=== PATIENT | male | born 1965 | race Caucasian/White ===

== ENCOUNTER 2019-07-15 19:35 | Inpatient (IN) ==
[2019-07-15] MEDS ORDERED: ALUMINUM/MAGNESIUM SUSP 30 ML UDC PO STA (19:43)
[2019-07-15] MEDS ORDERED: ASPIRIN CHEW 324 MG PO STA (19:43)
[2019-07-15] MEDS ORDERED: ASPIRIN CHEW 324 MG ONE (19:44)
[2019-07-15] MEDS ORDERED: ALUMINUM/MAGNESIUM SUSP 30 ML UDC ONE (19:45)
[2019-07-15] MEDS ORDERED: SODIUM CHLORIDE 0.9% 500 ML IV SCH (19:45)
[2019-07-15] MEDS ORDERED: NiCARDipine HCL INJ 2.5 MG/ML 10 ML AMP ONE (19:53)
[2019-07-15] MEDS ORDERED: MIDAZOLAM HCL 1 MG/ML 2ML VIAL ONE (19:53)
[2019-07-15] MEDS ORDERED: NITROGLYCERIN/D5W 100MCG/ML 20ML SYR ONE (19:53)
[2019-07-15] MEDS ORDERED: HEPARIN (PORCINE) 1000 UNIT/ML 10 ML (CATH LAB USE ONLY) ONE (19:53)
[2019-07-15] MEDS ORDERED: fentaNYL citrate 100 MCG/2 ML VIAL ONE (19:53)
[2019-07-15 19:54] LABS: Basophils # (auto) 0.04 K/uL (0-0.2); Basophils % (auto) 0.4 %; Eosinophils # (auto) 0.52 K/uL (0-0.5); Eosinophils % (auto) 5.5 %; Hemoglobin 14.2 g/dL (14.0-18.0); Immature Granulocytes # (auto) 0.01 K/uL (0.00-0.02); Immature Granulocytes % (auto) 0.1 %; Lymphocytes # (auto) 2.82 K/uL (1.2-3.4); Mean Corpuscular Hgb Conc 34.6 g/dL (32-36); Mean Corpuscular Volume 89.1 fL (80-100); Mean Platelet Volume 9.8 fL (7.4-10.4); Monocytes # (auto) 0.95 K/uL (0.11-0.59); Monocytes % (auto) 10.1 %; Neutrophils # (auto) 5.06 K/uL (1.4-6.5); Neutrophils % (auto) 53.9 %; Platelet Count 224 K/uL (130-400); RDW Coefficient of Variation 13.5 % (11.5-14.5)
[2019-07-15 20:04] LABS: iSTAT Creatinine 1.2 mg/dl (0.6-1.3); iSTAT Hemoglobin 13.9 g/dl (14.0-18.0); iSTAT Ionized Calcium 1.21 mmol/l (1.12-1.32); iSTAT Potassium 3.5 mEq/L (3.3-5.0)
[2019-07-15] MEDS ORDERED: TICAGRELOR 90 MG TAB PO ONE (20:04)
[2019-07-15 20:09] LABS: Partial Thromboplastin Ratio 0.9; Partial Thromboplastin Time 25.3 Seconds (21.0-31.0); Prothrombin Time 9.8 Seconds (9.0-12.0)
[2019-07-15 20:11] LABS: Alanine Aminotransferase 39 U/L (12-78); Albumin Level 3.8 gm/dl (3.4-5.0); Aspartate Aminotransferase 17 U/L (15-37); BUN Creatinine Ratio 12.2 (10-20); Blood Urea Nitrogen 13 mg/dl (7-18); Calcium 9.1 mg/dl (8.5-10.1); Carbon Dioxide 29 mmol/L (21-32); Chloride 107 mmol/L (98-107); Est GFR (African American) 89.3; Est GFR (Non-African American) 77.1; Glucose 78 mg/dl (70-99); Potassium 3.5 mmol/L (3.5-5.1); Sodium 142 mmol/L (136-145)
--- NOTE | 2019-07-15 20:12 | XRay Report ---
XR chest 1V portable CLINICAL HISTORY: Chest Pain dyspnea COMPARISON STUDY: No previous studies for comparison. FINDINGS: The bones soft tissues and hemidiaphragms are normal. The cardiomediastinal silhouette is n ormal. The lungs are clear. The pulmonary vasculature is normal. IMPRESSION: Negative chest. The above report was generated using voice recognition software. It may contain grammatical, syntax or spelling errors. Electronically signed by: Quinton Lozada M.D. 07/15/2019 8:10 PM
[2019-07-15 20:14] LABS: Albumin Globulin Ratio 1.3 (0.9-2); Alkaline Phosphatase 72 U/L (45-117); Bilirubin,Total 0.2 mg/dl (0.2-1); Total Protein 6.8 gm/dl (6.4-8.2)
--- NOTE | 2019-07-15 20:58 | Emergency Department Note ---
Entered by Arline Jacobsen acting as a scribe for Fredo Tuttle DO History of Present Illness General Chief complaint: Chest Pain Stated complaint: CHEST PAIN Source: patient History of Present Illness Provider complaint: Chest pain Onset (ago): hour(s) 1 Location: chest Radiation: other (arm) Pain Consistency: + constant Maximum Pain Intensity: 9 Quality: + burning Exacerbated By: + other (laying down ) Associated symptoms: + other (Positive: central chest pain); no nausea/vomiting The patient is a 53 year old male with no known past medical history who presents to the ED with complaints of constant burning central chest pain that started an hour ago. The patient reports he was cooking hot dogs when he experienced his chest pete. He notes he has been having chest pain for 2 weeks. The patient additionally states his chest pain radiates down his arm. He reports he smokes 12 cigarettes a day. The patient states laying down makes his pain worse. He denies family history of heart disease. The patient denies nausea. Allergies Allergy/AdvReac Type Severity Reaction Status Date / Time No Known Allergies Allergy Unverified 07/15/19 19:39 Past Med/Surg History Medical History No known problems Family History Other No known problems Social History Feels Safe at Home: Yes Smoking Status: Current every day smoker Review of Systems See HPI for pertinent positives & negatives. and A total of 10 systems reviewed and were otherwise negative Physical Exam Vital Signs Vital Signs - 24 hr 07/15/19 19:36 07/15/19 19:42 07/15/19 19:51 Temperature 37.3 C Temperature Source Oral Sepsis Recent Fever Within 48 Hours No Sepsis Action Taken by Nursing No Action Required Pulse Rate 58 L 73 Pulse Rate [Finger] 57 L Respiratory Rate 20 18 Respiratory Effort / Characteristics Non-Labored Spontaneous Respiratory Depth Normal Blood Pressure [Right Arm] 127/87 Blood Pressure Mean [Right Arm] 100 Pulse Oximetry 98 99 Oxygen Delivery Method Room Air Room Air GENERAL: Patient is awake, alert, and in no acute distress.Patient is resting comfortably and showing no signs of anxiety EYES: The conjunctivae are clear. The pupils are round and reactive. EARS, NOSE, MOUTH AND THROAT: The nose is without any evidence of any deformity. Mucous membranes are moist.Tongue is midline NECK: The neck is nontender and supple. RESPIRATORY: Normal respiratory effort is noted. There is no evidence of wheezing rhonchi or rales to auscultation. CARDIOVASCULAR: Regular rate and rhythm noted. There no murmurs rubs or gallops normal S1 normal S2 GASTROINTESTINAL: The abdomen is soft. Bowel sounds are present in all quadrants. Abdomen is nontender. MUSCULOSKELETAL/EXTREMITIES: There is no evidence of gross deformity. Full range of motion is noted in the hips and shoulders. SKIN: There is no obvious evidence of any rash. There are no petechiae, pallor or cyanosis noted. NEUROLOGIC: Patient is awake alert and oriented x3. Strength is symmetric. Patellar reflexes are 2+ bilaterally. Course 194: The patient was evaluated in room C9. A complete history and physical exam was performed. 2006: I discussed the patient's case with Dr. Rasmussen, [facility] Hospitalist. He evaluated the patient and requested brilinta. The patient was given 180 brilinta and is going to catheterization lab. Consultations Consultation #1: I discussed the patient's case with Dr. Rasmussen Time: 20:06 Administered Medications Discontinued Medications Al Hydrox/Mg Hydrox/Simethicone (Maalox) 30 ml PO NOW STA Stop: 07/15/19 19:44 Last Admin: 07/15/19 19:45 Dose: 30 ml Documented by: [id number] Al Hydrox/Mg Hydrox/Simethicone (Maalox) Confirm Administered Dose 30 ml .ROUTE .STK-MED ONE Stop: 07/15/19 19:46 Last Admin: 07/15/19 19:55 Dose: Not Given Documented by: [id number] Aspirin (Aspirin) 324 mg PO NOW STA Stop: 07/15/19 19:44 Last Admin: 07/15/19 19:45 Dose: 324 mg Documented by: [id number] Aspirin (Aspirin) Confirm Administered Dose 324 mg .ROUTE .STK-MED ONE Stop: 07/15/19 19:45 Last Admin: 07/15/19 19:55 Dose: Not Given Documented by: [id number] Sodium Chloride (Nss) 500 mls @ 999 mls/hr IV .Q31M MARGARITA Stop: 07/15/19 20:15 Last Admin: 07/15/19 19:57 Dose: 999 mls/hr Documented by: [id number] Medical Decision Making Differential Diagnosis Differential diagnosis: Etiologies such as cardiac ischemia, aortic dissection, pulmonary embolism, pneumonia, pneumothorax, musculoskeletal, infections, pericarditis, myocarditis, esophageal rupture, gastrointestinal, as well as others were entertained. Medical Records Attestation: I reviewed the patient's medical records. Home Medications Current Medication List: was personally reviewed by me (No known home medications ) Laboratory Data Attestation: I reviewed the patient's lab results. Result diagrams: 07/15/19 19:46 07/15/19 19:46 Lab Results 07/15/19 07/15/19 07/15/19 Range/Units 19:46 19:46 19:46 WBC 9.40 (4.8-10.8) K/uL RBC 4.60 L (4.7-6.1) M/uL Hgb 14.2 (14.0-18.0) g/dL POC Hgb (14.0-18.0) g/dl Hct 41.0 L (42-52) % POC Hct (42-52) % MCV 89.1 (80-100) fL MCH 30.9 (25-34) pg MCHC 34.6 (32-36) g/dL RDW Std Deviation 44.0 (36.4-46.3) fL RDW Coeff of Edyta 13.5 (11.5-14.5) % Plt Count 224 (130-400) K/uL MPV 9.8 (7.4-10.4) fL Immature Gran % (Auto) 0.1 % Neut % (Auto) 53.9 % Lymph % (Auto) 30.0 % Traverse % (Auto) 10.1 % Eos % (Auto) 5.5 % Baso % (Auto) 0.4 % Immature Gran # (Auto) 0.01 (0.00-0.02) K/uL Neut # (Auto) 5.06 (1.4-6.5) K/uL Lymph # (Auto) 2.82 (1.2-3.4) K/uL Traverse # (Auto) 0.95 H (0.11-0.59) K/uL Eos # (Auto) 0.52 H (0-0.5) K/uL Baso # (Auto) 0.04 (0-0.2) K/uL PT 9.8 (9.0-12.0) Seconds INR 1.0 (0.9-1.1) APTT 25.3 (21.0-31.0) Seconds PTT Ratio 0.9 POC Sodium (135-144) mEq/L Sodium 142 (136-145) mmol/L POC Potassium (3.3-5.0) mEq/L Potassium 3.5 (3.5-5.1) mmol/L POC Chloride (101-112) mEq/L Chloride 107 (98-107) mmol/L Carbon Dioxide 29 (21-32) mmol/L POC Total CO2 (24-31) mEq/l Anion Gap 6.0 (3-11) POC Anion Gap (16-25) mmol/L POC BUN (7-18) mg/dl BUN 13 (7-18) mg/dl Creatinine 1.09 (0.6-1.4) mg/dl POC Creatinine (0.6-1.3) mg/dl Est Cr Clr Drug Dosing Not Reportable Est GFR ( Amer) 89.3 Est GFR (Non-Af Amer) 77.1 BUN/Creatinine Ratio 12.2 (10-20) Glucose 78 (70-99) mg/dl POC Glucose (other) (70-99) mg/dl Calcium 9.1 (8.5-10.1) mg/dl POC Ioniz Calcium Edyta (1.12-1.32) mmol/l Total Bilirubin 0.2 (0.2-1) mg/dl AST 17 (15-37) U/L ALT 39 (12-78) U/L Alkaline Phosphatase 72 (45-117) U/L POC Troponin I (0-0.045) ng/ml Total Protein 6.8 (6.4-8.2) gm/dl Albumin 3.8 (3.4-5.0) gm/dl Globulin 3.0 (2.5-4.0) gm/dl Albumin/Globulin Ratio 1.3 (0.9-2) Lipase 58 L (73-393) U/L 07/15/19 07/15/19 Range/Units 19:51 19:51 WBC (4.8-10.8) K/uL RBC (4.7-6.1) M/uL Hgb (14.0-18.0) g/dL POC Hgb 13.9 L (14.0-18.0) g/dl Hct (42-52) % POC Hct 41 L (42-52) % MCV (80-100) fL MCH (25-34) pg MCHC (32-36) g/dL RDW Std Deviation (36.4-46.3) fL RDW Coeff of Edyta (11.5-14.5) % Plt Count (130-400) K/uL MPV (7.4-10.4) fL Immature Gran % (Auto) % Neut % (Auto) % Lymph % (Auto) % Traverse % (Auto) % Eos % (Auto) % Baso % (Auto) % Immature Gran # (Auto) (0.00-0.02) K/uL Neut # (Auto) (1.4-6.5) K/uL Lymph # (Auto) (1.2-3.4) K/uL Traverse # (Auto) (0.11-0.59) K/uL Eos # (Auto) (0-0.5) K/uL Baso # (Auto) (0-0.2) K/uL PT (9.0-12.0) Seconds INR (0.9-1.1) APTT (21.0-31.0) Seconds PTT Ratio POC Sodium 141 (135-144) mEq/L Sodium (136-145) mmol/L POC Potassium 3.5 (3.3-5.0) mEq/L Potassium (3.5-5.1) mmol/L POC Chloride 102 (101-112) mEq/L Chloride (98-107) mmol/L Carbon Dioxide (21-32) mmol/L POC Total CO2 25 (24-31) mEq/l Anion Gap (3-11) POC Anion Gap 19.0 (16-25) mmol/L POC BUN 12 (7-18) mg/dl BUN (7-18) mg/dl Creatinine (0.6-1.4) mg/dl POC Creatinine 1.2 (0.6-1.3) mg/dl Est Cr Clr Drug Dosing Est GFR ( Amer) Est GFR (Non-Af Amer) BUN/Creatinine Ratio (10-20) Glucose (70-99) mg/dl POC Glucose (other) 78 (70-99) mg/dl Calcium (8.5-10.1) mg/dl POC Ioniz Calcium Edyta 1.21 (1.12-1.32) mmol/l Total Bilirubin (0.2-1) mg/dl AST (15-37) U/L ALT (12-78) U/L Alkaline Phosphatase (45-117) U/L POC Troponin I 0.08 H (0-0.045) ng/ml Total Protein (6.4-8.2) gm/dl Albumin (3.4-5.0) gm/dl Globulin (2.5-4.0) gm/dl Albumin/Globulin Ratio (0.9-2) Lipase (73-393) U/L Imaging Data Radiologist's Impression: Radiology results as stated below per my review and the radiologist's interpretation: XR chest 1V portable CLINICAL HISTORY: Chest Pain dyspnea COMPARISON STUDY: No previous studies for comparison. FINDINGS: The bones soft tissues and hemidiaphragms are normal. The car diomediastinal silhouette is normal. The lungs are clear. The pulmonary vasculature is normal. IMPRESSION: Negative chest. The above report was generated using voice recognition software. It may contain grammatical, syntax or spelling errors. Electronically signed by: Quinton Lozada M.D. 07/15/2019 8:10 PM ECG Data Attestation: I personally reviewed and interpreted this ECG as follows: Indication: chest pain Rate (beats per minute): 51 Rhythm: sinus bradycardia Findings: + other (Inferior ST segment elevation noted with anterior reciprocal changed noted. Consistent with inferior posterior wall LA); no ectopy Comparison ECG Date: no prior available Blood Pressure Blood Pressure Findings: Normal blood pressure Blood Pressure Disposition: did not require urgent referral MDM Narrative The patient is a 53-year-old male who presented to the emergency department for an evaluation of chest pain. The patient describes chest burning with radiation to the arms. The onset was acute and was associated with diaphoresis. The patient has had similar episodes in the past for the last few weeks but he did not seek medical attention at that time. The patient is initial EKG appeared to be consistent with an acute LA. Heart alert was called. The patient was treated with aspirin in the emergency department. He was reevaluated multiple times. After evaluation by the upper inspector he was also given Brilinta. The patient was felt to be a good candidate for cardiac catheterization and possible interventional therapy. The patient was agreeable to this. I discussed what this would entail and he was evaluated by the upper inspector and further questions were answered. I discussed the patient's laboratory and radiographic studies with his family. He was sent to the cardiac [facility] Operations [employer]ist. He was stable on transfer to the Learning Operations [employer]ist. Impression & Plan Acute LA, inferior wall, Chest pain, Acute LA, true posterior wall Discharge Plan Visit Data *Final* Discharge Date/Time: 07/15/19 20:18 Chief Complaint: Chest Pain Stated Complaint: CHEST PAIN ED Provider: Fredo Tuttle Discharge Problem: Acute LA, inferior wall, Chest pain, Acute LA, true posterior wall Patient Disposition: Admitted As Inpatient Discharge Instructions Interventions: ED Discharge Assessment Last Done: 07/15/19 20:18 Forms Stand Alone Forms: Call Back Authorization, [facility] Referrals Referrals: Silvina Oneill MD [Primary Care Provider] - Discharge Problem: Chest pain Qualifiers: Chest pain type: unspecified Qualified Code(s): R07.9 - Chest pain, unspecified The scribe's documentation has been prepared under my direction and personally reviewed by me in its entirety. I confirm that the note above accurately reflects all work, treatment, procedures, and medical decision making performed by me.
--- NOTE | 2019-07-15 21:02 | Pre Anesthesia Assessment ---
Date of Service July 15, 2019 Pre Sedation Assessment Vital Signs Temp Pulse Pulse Resp BP Pulse Ox 07/15/19 19:51 73 99 07/15/19 19:42 57 L 18 127/87 07/15/19 19:36 37.3 C 58 L 20 98 Cardiovascular RRR, no murmur, no edema Respiratory normal respiratory effort, lungs clear to auscultation Pre-Sedation Airway Assessment Smoking Status: Current every day smoker Hx Sleep Apnea: No Hx Difficult Intubation: No Thyromental Distance: > or= 3.5 Finger Breadths Oral Cavity: + WNL Mallampati Class: III Procedure Planning Contraindications for Sedation: none Current Medications Reviewed: Yes Notes The planned sedation has been discussed with the patient. Informed Consent was obtained. I have identified the patient, determined the appropriateness of sedation and have assessed the patient immediately prior to the procedure. All medicine(s) and interventions are by my order.
[2019-07-15] MEDS ORDERED: ICU PROTOCOL FOR HYPERGLYCEMIA PRN (21:06)
[2019-07-15] MEDS ORDERED: ONDANSETRON INJ 2 MG/ML 2 ML VIAL IV PRN (21:06)
[2019-07-15] MEDS ORDERED: ACETAMINOPHEN 325 MG TAB PO PRN (21:06)
--- NOTE | 2019-07-15 21:17 | Cardiology Consultation ---
Date of Consultation July 15, 2019 Assessment & Plan (1) Acute IA, inferior wall: Presentation consistent with inferior STEMI and recommend proceeding with emergent cardiac catheterization and likely primary PCI. No apparent contraindications to procedure. Discussed risks, benefits, alternatives of procedure with patient and they are willing to proceed. Given ticagrelor 180 mg in the ED. Further recommendations pending findings of coronary angiography. History of Present Illness Reason for Consultation: STEMI Requesting Physician: Parag History of Present Illness 53-year-old man here with acute chest pain and ECG concerning for acute IA. Patient seen emergently in the ED after heart alert activated upon arrival. No prior cardiac history. Cardiac risk factors include ongoing tobacco use. No other significant medical history. Chest pain began approximately 1 hour prior to arrival while at rest. Describes chest burning radiating to bilateral arms associated with nausea and diaphoresis. Reports brief episodes of pain similar to this over the last 2 weeks that resolved on their own. Chest pain at its worst 9/10, at time of arrival 6/10. Hemodynamically stable. EKG showed subtle inferior ST elevations, Allergies Allergy/AdvReac Type Severity Reaction Status Date / Time No Known Allergies Allergy Unverified 07/15/19 19:39 Home Medications Home Medications Medication Instructions Recorded Confirmed Type atorvastatin [Lipitor] 20 mg PO DAILY 07/15/19 07/15/19 History hydrocodone-acetaminophen 1 tab PO DAILY PRN 07/15/19 07/15/19 History pantoprazole 20 mg PO DAILY 07/15/19 07/15/19 History Patient History Medical History Tobacco use (Chronic) Chronic back pain (Chronic) HLD (hyperlipidemia) (Chronic) GERD (gastroesophageal reflux disease) (Chronic) Surgical History History of cardiac catheterization (Chronic) 07/15/19 - STEMI, S/P PCI, [facility], [facility], By Dr Rasmussen History of vasectomy (Chronic) Family History Grandfather Stroke Brother Hypertension Social History Preferred Language: French Communication Ability: Effective Appeals Nurse Required: No Beliefs That Will Affect Care: None Current Living Situation: Family Other Information That Helps Us Care for You: No Feels Safe at Home: Yes Safety Concerns: Feels Safe At This Time Smoking Status: Current every day smoker Tobacco Type: cigarettes ; Cigarettes Per Day: 12 cigarettes per day x 30 years ; Do You Dip or Chew Tobacco: Yes ; Second Hand Exposure: No ; Tobacco Cessation Education Requested by Patient: No Hx Alcohol Use: Yes Alcohol Intake Frequency: Holidays/Special Occasions Hx Substance Use: Yes substance use type: marijuana Review of Systems Review of Systems: Not obtained in the setting of emergent situation Physical Exam Physical Exam: General: Comfortable, no acute distress HEENT: Sclerae anicteric, mucous membranes moist Lungs: Clear to auscultation bilaterally, no rhonchi or wheezes Cardiac: Regular rate and rhythm, no murmurs. No JVD. Abdomen: Soft, nontender, nondistended, positive bowel sounds. Extremities: Warm, well perfused, no edema. 2+ radial pulses Skin: No rashes or lesions. Neuro: Nonfocal Psych: Alert orient x3, normal affect and mood Results & Data Vital Signs (Past 12 Hours) Vital Signs Temp Pulse Pulse Resp BP Pulse Ox 07/15/19 19:51 73 99 07/15/19 19:42 57 L 18 127/87 07/15/19 19:36 37.3 C 58 L 20 98 PG Care Time/CCT Total # of Minutes Spent Total Time Spent with Patient: Total time spent is greater than 50% in cooler tender rdination of care (as documented) at patient's floor/unit and/or counseling patient:
--- NOTE | 2019-07-15 21:24 | Cardiac Catheterization ---
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 Cardiac Status Clinical evaluation leading to the procedure CAD Presenation: STEMI Anginal Classification: CCS IV Heart Failure: No Cardiogenic Shock within 24 Hours: No Cardiac Arrest within 24 Hours: No Imaging Studies Past 6 Months: No Stress Studies Past 6 Months: No Diagnostic Physicians Name: Santana Rasmussen MD Status: Emergency Closure Device Percutaneous Entry Location: Radial Closure Device: Radial Band Recommendations: PCI without planned CABG PCI Indication: Immediate PCI for STEMI Lesion Segment Name: Proximal OM 1 Culprit Artery: Yes Stenosis Prior to Rx (%): 100 Chronic Total Occlusion: No IVUS: No FFR: No Pre-Procedure TEJAS Flow: 0 Previously Treated Lesion: No Lesion Complexity: Non-High/Non-C Lesion Length (mm): 12 Thrombus Present: Yes Bifurcation Lesion: No Guidewire Across Lesion: Stenosis Post-Procedure (%): 0 Post-Procedure TEJAS Flow: 3 Devices(s) Deployed: Yes Yes Intraprocedure Events Significant Disection: No Perforation: No Cardiac Cath Procedure Full Procedure Date July 15, 2019 Pre-Procedure Diagnosis Pre-Procedure Diagnosis: STEMI AUC Score AUC Score: 9 Post-Procedure Diagnosis Post-Procedure Diagnosis: Severe CAD, Successful PCI and Normal Intracardiac Pressures Procedure(s) Performed Procedure(s) Performed: Coronary Angiography, Left Heart Cath, Drug Eluting Stent and Ultrasound Guided Vascular Access Rn Occupational Health Santana Rasmussen MD Lpn Medical Assistant(s) Dannielle Estimated Blood Loss Estimated Blood Loss: 10 Medication(s) Medication(s): Fentanyl, Heparin, Lidocaine 1%, Nicardipine, Nitroglycerin and Versed Medication(s): Ticagrelor Summary of Findings Indication: STEMI/Heart Alert Access: 6 Fr right radial artery under ultrasound guidance Catheters: Ikari 3.5 guide Findings: LM -moderate caliber vessel, luminal irregularities LAD -moderate caliber vessel, distal luminal irregularities, extends around apex. Gives off large second diagonal without significant disease Circumflex -moderate caliber vessel, large OM1 100% acutely occluded. RCA -large caliber vessel, dominant, ectatic in the earlymid segment, luminal irregularities in PLB's. LVEDP -5 -- PCI -- Antithrombotic therapy: Heparin, ticagrelor Procedure: Left main cannulated with Ikari 3.5 guide BMW wire passed across lesion into distal vessel Proximal OM 1 lesion predilated with 2.5 compliant balloon Dilated lesion stented with 2.5 x 18 mm Xience drug-eluting stent Stent post-dilated with 2.75 noncompliant balloon IC vasodilators administered for spasm Post procedure TEJAS 3 flow, stent well expanded with minimal residual stenosis and no apparent cardiac complications. Arterial Closure: TR band Summary: 1. Acute 100% proximal OM1 occlusion 2. Minimal non-culprit coronary artery disease 3. Normal intracardiac filling pressure 4. Successful PCI of proximal OM1 with single drug-eluting stent (2.5 x 18 Xience Valarie; postdilated with 2.75 NC). Recommendations: Admit to ICU for continued monitoring Loaded with ticagrelor 180 mg Continue dual-antiplatelet therapy for at least 1 year. Trend troponins until peak, Check Echo Uptitrate beta-zane/BREONNA as BP allows High-dose statin Consult cardiac Rehab Hemodynamics Rest Ao:: 143/78/104 Final Ao: 102/59/78 LV: 100/5 Recommendations Recommendations: PCI without planned CABG Specimens Specimens: None Radiation Exposure (mGy) 2372 Contrast (mls) 140 Fluids (cc crystalloids) Fluids (cc crystalloids): 70 Drains Drains: 79 Anesthesia Moderate Procedural Complication(s) None Disposition ICU
--- NOTE | 2019-07-15 21:24 | Post Anesthesia Assessment ---
Date of Service July 15, 2019 Post Sedation Assessment Vital Signs Temp Pulse Pulse Resp BP Pulse Ox 07/15/19 19:51 73 99 07/15/19 19:42 57 L 18 127/87 07/15/19 19:36 37.3 C 58 L 20 98 Recovery Score Activity: Moves 4 extremities Respiration: Deep Breath/Cough Circulation: +/-20% PreAnes Value Consciousness: Fully Awake Oxygen Saturation: O2 needed for >90% Discharge Sedation Level of Care: Fast Track Phase II Post Sedation Plan On clinical assessment, the patient appears to have tolerated the sedation without complications. Patient is recovering as anticipated. Patient will continue to be monitored by nursing and may be discharged when sedation discharge criteria are met per below protocol. Upon Completions of procedure and additional 15 minutes continue every 5 minute vital signs and the P.A.R. score; then discharge to a Phase I or Fast Track to Phase II per the following guidelines: * Discharge Patient to appropriate Phase II area if PAR is 8 or greater or return to pre- procedure baseline. The post - procedure orders will be as directed. * If PAR score is less than 8 or not return to pre-procedure baseline then patient will follow Phase I monitoring till PAR is reached for Phase II. The Phase I may be done in procedure room or may call to secure a Phase I area. * If naloxone or flumazenil are used for reversal, hold in Phase I for continued monitoring from when last reversal dose was given for a minimum of 60 minutes or longer pending the nurse and/or physician discretion of patient condition before discharge to Phase II. Please call the Sedation Physician to re-evaluate and complete post-note for discharge to Phase II area. Do NOT discharge from procedure sedation or Phase 1 until post- sedation evaluation note is complete by procedure /sedation MD Sedation Discharge Instructions to be given to the patient at discharge to home.
--- NOTE | 2019-07-15 22:13 | History & Physical Report ---
Date of Service July 15, 2019 Assessment & Plan (1) STEMI (ST elevation myocardial infarction): Pt presented with central CP x 1 hour with radiation arm, nausea, diaphoresis EKG: ST elevation in inferior leads, sinus bradycardia rate 51. -Was loaded with Brilinta, given ASA 324mg in ER -S/P PCI with SHELLEY to proximal OM1 today by Dr Rasmussen. -Trend troponin -Echo -Lipid panel and A1c in am -Cardiology on board: Atorvastatin 80mg daily, Lisinopril 5mg, Brilinta BID, Metoprolol 25mg BID Recommends dual antiplatelet therapy for at least 1 year. Recommends cardiac rehab (2) HLD (hyperlipidemia): -atorvastatin increased to 80mg daily (3) GERD (gastroesophageal reflux disease): -Continue PPI (4) Chronic back pain: -On Hydrocodone (5) Tobacco use: -Smoking cessation encouraged Full Code as per discussion with pt Follows with Dr Silvina Oneill in [place] for routine care Pt was seen and care coordinated with Dr Bailey. See addendum History of Present Illness Chief Complaint: CP Primary Care Provider: Silvina Oneill MD Pt is 53 y/o M with PMH tobacco use, HLD, GERD, chronic back pain presented to ER with c/o central CP x 1 hour with radiation to arms, nausea, and diaphoresis. He reported intermittent CP over past 2 weeks that would self resolve. In ER EKG sinus bradycardia with ST elevation in inferior leads with stable vital sign s. Initial POC troponin mildly elevated at 0.08. STEMI and S/P PCI with SHELLEY to proximal OM1 today by Dr Rasmussen. Post cath pt reports doing well. He denies any CP, SOB, dizziness, N/V. Denies fever/chills, diaphoresis, PETER, syncope, vision changes, neck pain, orthopnea, palpitations, cough, sore throat, choking, otalgia, rhinorrhea, abdominal pain, paresthesias, extremity edema, rashes, urinary symptoms. Allergies Allergy/AdvReac Type Severity Reaction Status Date / Time No Known Allergies Allergy Unverified 07/15/19 19:39 Home Medications Home Medications Medication Instructions Recorded Confirmed Type atorvastatin [Lipitor] 20 mg PO DAILY 07/15/19 07/15/19 History hydrocodone-acetaminophen 1 tab PO DAILY PRN 08/16/19 08/16/19 History pantoprazole 20 mg PO DAILY 07/15/19 07/15/19 History Past Med/Surg History Medical History Tobacco use (Chronic) Chronic back pain (Chronic) HLD (hyperlipidemia) (Chronic) GERD (gastroesophageal reflux disease) (Chronic) Surgical History History of cardiac catheterization (Chronic) 07/15/19 - STEMI, S/P PCI, SHELLEY proximal OM1, [facility], By Dr Rasmussen History of vasectomy (Chronic) Family History Grandfather Stroke Brother Hypertension Social History Preferred Language: Upper Sorbian Communication Ability: Effective Color Print Inspector Required: No Beliefs That Will Affect Care: None Current Living Situation: Family Other Information That Helps Us Care for You: No Feels Safe at Home: Yes Safety Concerns: Feels Safe At This Time Smoking Status: Current every day smoker Tobacco Type: cigarettes ; Cigarettes Per Day: 12 cigarettes per day x 30 years ; Do You Dip or Chew Tobacco: Yes ; Second Hand Exposure: No ; Tobacco Cessation Education Requested by Patient: No Hx Alcohol Use: Yes Alcohol Intake Frequency: Holidays/Special Occasions Hx Substance Use: Yes substance use type: marijuana Review of Systems Review of Systems: All systems reviewed & are unremarkable except as noted in HPI & below Physical Exam Physical Exam: General: no distress, WDWN Head: normocephalic, atraumatic Eyes: PERRL, EOM's intact, conjunctiva non-injected, anicteric ENT: normal inspection external ears, nose, mucous membranes moist Neck: supple, trachea midline Lungs: clear, no respiratory distress, no wheezing/rhonchi/rales CV: RRR, no murmur, no JVD, no pretibial edema Abd: normal BS, soft, non-tender Ext: no cyanosis, no calf tenderness; Right wrist with compression band in place without significant bleeding, ROM fingers intact, sensation to light touch intact Neuro: A&O x 3, no focal deficits noted, normal affect Skin: warm, dry Results & Data Vital Signs (Past 12 Hours) Vital Signs Temp Pulse Pulse Resp BP Pulse Ox 07/15/19 19:51 73 99 07/15/19 19:42 57 L 18 127/87 07/15/19 19:36 37.3 C 58 L 20 98 Laboratory Results Short CBC 07/15/19 Range/Units 19:46 WBC 9.40 (4.8-10.8) K/uL Hgb 14.2 (14.0-18.0) g/dL Hct 41.0 L (42-52) % Plt Count 224 (130-400) K/uL BMP 07/15/19 19:46 Sodium 142 Potassium 3.5 Chloride 107 Carbon Dioxide 29 BUN 13 Creatinine 1.09 Glucose 78 Calcium 9.1 Liver Function 07/15/19 Range/Units 19:46 Total Bilirubin 0.2 (0.2-1) mg/dl AST 17 (15-37) U/L ALT 39 (12-78) U/L Alkaline Phosphatase 72 (45-117) U/L Albumin 3.8 (3.4-5.0) gm/dl Diagnostic Findings CXR: IMPRESSION: Negative chest. ECG Rate (beats per minute): 51 Rhythm: sinus bradycardia Findings: + ST elevation (Inferior) Code Status & VTE Plan VTE Prophylaxis Plan VTE Prophylaxis will be ordered: Yes Supervising Physician Co-Signing Physician Notes IM ATTENDING : Patient seen and examined. History obtained from patient and records. Preceding documentation by Ms. Susanna Guzman PA-C reviewed. FINAL ASSESSMENT AND PLAN as follows : STEMI sp successful PCI Hyperlipidemia as per records Ongoing tobacco abuse ICU monitoring post PCI Management of cardiac issues as per spray cementer. Nicotine patch PRN DVT prophylaxis. Lovenox subcu Full code
[2019-07-15] MEDS ORDERED: SODIUM CHLORIDE 0.65% NA SOLN 45 ML (OCEAN) PRN (22:26)
[2019-07-15] MEDS ORDERED: PROMETHAZINE HCL 12.5 MG in SODIUM CHLORIDE 0.9% 50 ML IV PRN (22:29)
[2019-07-15] MEDS ORDERED: MoRPHine SULFATE 4 MG/ML 1 ML CARP\\VIAL IV PRN (22:29)
[2019-07-15] MEDS ORDERED: TRAMADOL HCL 50 MG TABLET PO PRN (22:29)
[2019-07-15] MEDS ORDERED: METOPROLOL TARTRATE 25 MG TAB PO ONE (23:00)
[2019-07-15] MEDS: SODIUM CHLORIDE 0.9% 1000ML 1,000 ML IV SCH (23:37)
[2019-07-16 03:11] LABS: Basophils # (auto) 0.03 K/uL (0-0.2); Basophils % (auto) 0.3 %; Eosinophils # (auto) 0.16 K/uL (0-0.5); Eosinophils % (auto) 1.5 %; Hemoglobin 13.8 g/dL (14.0-18.0); Immature Granulocytes # (auto) 0.01 K/uL (0.00-0.02); Immature Granulocytes % (auto) 0.1 %; Lymphocytes # (auto) 2.13 K/uL (1.2-3.4); Mean Corpuscular Hgb Conc 36.3 g/dL (32-36); Mean Platelet Volume 9.5 fL (7.4-10.4); Monocytes # (auto) 0.97 K/uL (0.11-0.59); Monocytes % (auto) 9.1 %; Neutrophils # (auto) 7.35 K/uL (1.4-6.5); Platelet Count 231 K/uL (130-400); RDW Coefficient of Variation 13.3 % (11.5-14.5); RDW Standard Deviation 42.9 fL (36.4-46.3); Red Blood Count 4.37 M/uL (4.7-6.1); White Blood Count 10.65 K/uL (4.8-10.8)
[2019-07-16 03:27] LABS: BUN Creatinine Ratio 14.3 (10-20); Calcium 8.3 mg/dl (8.5-10.1)
[2019-07-16 03:55] LABS: Troponin I 46.1 ng/ml (0-0.045)
[2019-07-16 05:58] LABS: Estimated Average Glucose 126 mg/dl
[2019-07-16] MEDS: METOPROLOL TARTRATE 25 MG TAB PO SCH ×2 (07:50→20:42)
[2019-07-16] MEDS: ASPIRIN 81 MG ECTAB PO SCH (07:51)
[2019-07-16] MEDS: ATORVASTATIN 40 MG TAB PO SCH (07:51)
[2019-07-16] MEDS: LISINOPRIL 5 MG TAB PO SCH (07:51)
[2019-07-16] MEDS: ENOXAPARIN INJ 40 MG/0.4 ML SYR SQ SCH (07:51)
[2019-07-16] MEDS: TICAGRELOR 90 MG TAB PO SCH ×2 (07:51→20:42)
[2019-07-16] MEDS: SODIUM CHLORIDE 0.9% 1000ML 1,000 ML IV SCH (07:56)
[2019-07-16 08:00] LABS: Lyme Ab IgG w/WB Rflx Negative (Negative); Lyme Ab IgM w/WB Rflx Negative (Negative)
--- NOTE | 2019-07-16 08:06 | Cardiology Progress Note ---
Date of Service July 16, 2019 Assessment & Plan (1) STEMI (ST elevation myocardial infarction): 2. Preserved LV function, inferolateral hypokinesis 3. Dyslipidemia 4. Tobacco use Patient stable from a cardiac standpoint. No recurrent chest pain. Hemodynamically stable. Sinus bradycardia, no ventricular ectopy. No signs of heart failure on exam. No apparent access like applications. Continue DAPT with aspirin, ticagrelor Okay to give low-dose metoprolol 12.5 twice daily Start lisinopril Continue high intensity statin Discussed smoking cessation Okay for transfer to telemetry today. Up walking halls this afternoon. If stable likely home tomorrow. Subjective Feeling well this morning. No chest pain. No shortness of breath. Tele reviewed -- sinus bradycardia, no ectopy Echo reviewed -- EF~55%, inferolateral hypokinesis Review of Systems Review of Systems: All systems reviewed & are unremarkable except as noted in HPI & below Physical Exam Physical Exam: General: Comfortable, no acute distress HEENT: Sclerae anicteric, mucous membranes moist Lungs: Clear to auscultation bilaterally, no rhonchi or wheezes Cardiac: Regular rate and rhythm, no murmurs. No JVD. Abdomen: Soft, nontender, nondistended, positive bowel sounds. Extremities: Warm, well perfused, no edema. Right radial artery access site with no ecchymosis, hematoma. Distal pulse and sensation intact. Skin: No rashes or lesions. Neuro: Nonfocal Psych: Alert orient x3, normal affect and mood Results & Data Vital Signs (Past 12 Hours) Vital Signs Temp Pulse Pulse Resp BP BP Pulse Ox 07/16/19 07:00 36.7 C 43 L 12 105/78 96 07/16/19 04:30 48 L 14 103/56 L 97 07/16/19 04:00 36.7 C 45 L 14 106/54 L 97 07/16/19 03:30 48 L 12 117/80 93 07/16/19 03:00 52 L 14 123/71 96 07/16/19 02:30 51 L 11 L 127/68 95 07/16/19 02:00 55 L 15 111/78 94 07/16/19 01:30 53 L 19 114/73 95 07/16/19 01:00 54 L 15 116/71 94 07/16/19 00:30 53 L 17 120/69 92 07/16/19 00:00 36.6 C 66 16 119/73 94 07/15/19 23:30 59 L 15 121/76 92 07/15/19 23:00 57 L 13 122/75 93 07/15/19 22:31 65 13 147/56 H 95 07/15/19 22:15 68 13 135/83 94 07/15/19 22:14 36.8 C 65 16 160/95 H 94 07/15/19 22:00 65 14 145/77 H 96 07/15/19 21:45 79 15 145/88 H 94 07/15/19 21:32 68 22 163/95 H 93 07/15/19 21:18 36.8 C 68 20 130/82 93 PG Care Time/CCT Total # of Minutes Spent Total Time Spent with Patient: Total time spent is greater than 50% in coordination of care (as documented) at patient's floor/unit and/or counseling patient:
[2019-07-16] MEDS ORDERED: METOPROLOL TARTRATE 25 MG TAB PO SCH (09:00)
--- NOTE | 2019-07-16 11:44 | Critical Care Consultation ---
Date of Consultation July 16, 2019 Assessment & Plan (1) STEMI (ST elevation myocardial infarction): PLAN: Resp: Tobacco abuse -Smoking cessation education CV: Acute ST elevation CO -Reviewed cardiology recommendations DVT prophylaxis: Patient is ambulatory Endocrine: ICU hyperglycemia protocol Vascular access: Peripheral IVs Code Status: Full Transfer orders to PCU placed. Present on Admission?: Yes History of Present Illness Attending Physician: Yamilka Shey Sr Patient presented with central chest pain of 1 hours duration to the emergency department. Found to have an ST elevation CO and went emergently to the cardiac Communications Planner. In the cardiac Communications [facility]anner he received one drug-eluting stent to the proximal OM. He was loaded with ticagrelor, was started on dual antiplatelet therapy, high-dose statin. Ambulated around ICU without issue. Stable for downgrade per cardiology's note. Allergies Allergy/AdvReac Type Severity Reaction Status Date / Time No Known Allergies Allergy Unverified 07/15/19 19:39 Home Medications Home Medications Medication Instructions Recorded Confirmed Type atorvastatin [Lipitor] 20 mg PO DAILY 07/15/19 07/15/19 History hydrocodone-acetaminophen 1 tab PO DAILY PRN 07/15/19 07/15/19 History pantoprazole 20 mg PO DAILY 07/15/19 07/15/19 History Patient History Medical History Tobacco use (Chronic) Chronic back pain (Chronic) HLD (hyperlipidemia) (Chronic) GERD (gastroesophageal reflux disease) (Chronic) Surgical History History of cardiac catheterization (Chronic) 07/15/19 - STEMI, S/P PCI, SHELLEY proximal OM1, [facility], By Dr Rasmussen History of vasectomy (Chronic) Family History Grandfather Stroke Brother Hypertension Social History Preferred Language: Korean Communication Ability: Effective Resource Analyst Required: No Beliefs That Will Affect Care: None Current Living Situation: Family Other Information That Helps Us Care for You: No Feels Safe at Home: Yes Safety Concerns: Feels Safe At This Time Smoking Status: Current every day smoker Tobacco Type: cigarettes ; Cigarettes Per Day: 12 cigarettes per day x 30 years ; Do You Dip or Chew Tobacco: Yes ; Second Hand Exposure: No ; Tobacco Cessation Education Requested by Patient: No Hx Alcohol Use: Yes Alcohol Intake Frequency: Holidays/Special Occasions Hx Substance Use: Yes substance use type: marijuana Review of Systems Review of Systems: All systems reviewed & are unremarkable except as noted in HPI & below Denies chest pain denies shortness of breath. Physical Exam Physical Exam: General: Alert. nontoxic. Skin: Warm, dry, Head: Atraumatic Ears, nose, mouth and throat: airway patent Cardiovascular: Normal peripheral perfusion Respiratory: no respiratory distress Gastrointestinal: Non distended Musculoskeletal: No deformity Results & Data Vital Signs (Past 12 Hours) Vital Signs Temp Pulse Resp BP Pulse Ox 07/16/19 11:00 44 L 17 106/67 95 07/16/19 10:00 44 L 12 107/75 94 07/16/19 09:00 77 16 131/75 93 07/16/19 08:00 49 L 12 128/71 95 07/16/19 07:00 36.7 C 43 L 12 105/78 96 07/16/19 04:30 48 L 14 103/56 L 97 07/16/19 04:00 36.7 C 45 L 14 106/54 L 97 07/16/19 03:30 48 L 12 117/80 93 07/16/19 03:00 52 L 14 123/71 96 07/16/19 02:30 51 L 11 L 127/68 95 07/16/19 02:00 55 L 15 111/78 94 07/16/19 01:30 53 L 19 114/73 95 07/16/19 01:00 54 L 15 116/71 94 07/16/19 00:30 53 L 17 120/69 92 07/16/19 00:00 36.6 C 66 16 119/73 94 Laboratory Results 07/16/19 07/16/19 07/16/19 Range/Units 08:54 03:01 03:01 WBC (4.8-10.8) K/uL RBC (4.7-6.1) M/uL Hgb (14.0-18.0) g/dL POC Hgb (14.0-18.0) g/dl Hct (42-52) % POC Hct (42-52) % MCV (80-100) fL MCH (25-34) pg MCHC (32-36) g/dL RDW Std Deviation (36.4-46.3) fL RDW Coeff of Edyta (11.5-14.5) % Plt Count (130-400) K/uL MPV (7.4-10.4) fL Immature Gran % (Auto) % Neut % (Auto) % Lymph % (Auto) % Hardin % (Auto) % Eos % (Auto) % Baso % (Auto) % Immature Gran # (Auto) (0.00-0.02) K/uL Neut # (Auto) (1.4-6.5) K/uL Lymph # (Auto) (1.2-3.4) K/uL Hardin # (Auto) (0.11-0.59) K/uL Eos # (Auto) (0-0.5) K/uL Baso # (Auto) (0-0.2) K/uL PT (9.0-12.0) Seconds INR (0.9-1.1) APTT (21.0-31.0) Seconds PTT Ratio Activ Coag Time Kaolin (94-140) SECONDS POC Sodium (135-144) mEq/L Sodium (136-145) mmol/L POC Potassium (3.3-5.0) mEq/L Potassium (3.5-5.1) mmol/L POC Chloride (101-112) mEq/L Chloride (98-107) mmol/L Carbon Dioxide (21-32) mmol/L POC Total CO2 (24-31) mEq/l Anion Gap (3-11) POC Anion Gap (16-25) mmol/L POC BUN (7-18) mg/dl BUN (7-18) mg/dl Creatinine (0.6-1.4) mg/dl POC Creatinine (0.6-1.3) mg/dl Est Cr Clr Drug Dosing Est GFR ( Amer) Est GFR (Non-Af Amer) BUN/Creatinine Ratio (10-20) Glucose (70-99) mg/dl POC Glucose (other) (70-99) mg/dl Estimat Average Glucose 126 mg/dl Hemoglobin A1c 6.0 H (4.5-5.6) % Calcium (8.5-10.1) mg/dl POC Ioniz Calcium Edyta (1.12-1.32) mmol/l Magnesium (1.8-2.4) mg/dl Total Bilirubin (0.2-1) mg/dl AST (15-37) U/L ALT (12-78) U/L Alkaline Phosphatase (45-117) U/L POC Troponin I (0-0.045) ng/ml Troponin I 47.600 H* (0-0.045) ng/ml Total Protein (6.4-8.2) gm/dl Albumin 3.4 (3.4-5.0) gm/dl Globulin (2.5-4.0) gm/dl Albumin/Globulin Ratio (0.9-2) Triglycerides (0-150) mg/dl Cholesterol (0-200) mg/dl LDL Cholesterol, Calc mg/dl VLDL Cholesterol, Calc mg/dl HDL Cholesterol mg/dl Cholesterol/HDL Ratio Lipase (73-393) U/L TSH (0.300-4.500) uIu/ml Nasal Screen MRSA (PCR) (Negative) Lyme Disease IgG Ab (Negative) Lyme Disease IgM Ab (Negative) 07/16/19 07/16/19 07/15/19 Range/Units 03:01 03:01 21:40 WBC 10.65 (4.8-10.8) K/uL RBC 4.37 L (4.7-6.1) M/uL Hgb 13.8 L (14.0-18.0) g/dL POC Hgb (14.0-18.0) g/dl Hct 38.0 L (42-52) % POC Hct (42-52) % MCV 87.0 (80-100) fL MCH 31.6 (25-34) pg MCHC 36.3 H (32-36) g/dL RDW Std Deviation 42.9 (36.4-46.3) fL RDW Coeff of Edyta 13.3 (11.5-14.5) % Plt Count 231 (130-400) K/uL MPV 9.5 (7.4-10.4) fL Immature Gran % (Auto) 0.1 % Neut % (Auto) 69.0 % Lymph % (Auto) 20.0 % Hardin % (Auto) 9.1 % Eos % (Auto) 1.5 % Baso % (Auto) 0.3 % Immature Gran # (Auto) 0.01 (0.00-0.02) K/uL Neut # (Auto) 7.35 H (1.4-6.5) K/uL Lymph # (Auto) 2.13 (1.2-3.4) K/uL Hardin # (Auto) 0.97 H (0.11-0.59) K/uL Eos # (Auto) 0.16 (0-0.5) K/uL Baso # (Auto) 0.03 (0-0.2) K/uL PT (9.0-12.0) Seconds INR (0.9-1.1) APTT (21.0-31.0) Seconds PTT Ratio Activ Coag Time Kaolin (94-140) SECONDS POC Sodium (135-144) mEq/L Sodium 141 (136-145) mmol/L POC Potassium (3.3-5.0) mEq/L Potassium 4.0 (3.5-5.1) mmol/L POC Chloride (101-112) mEq/L Chloride 111 H (98-107) mmol/L Carbon Dioxide 25 (21-32) mmol/L POC Total CO2 (24-31) mEq/l Anion Gap 5.0 (3-11) POC Anion Gap (16-25) mmol/L POC BUN (7-18) mg/dl BUN 12 (7-18) mg/dl Creatinine 0.82 (0.6-1.4) mg/dl POC Creatinine (0.6-1.3) mg/dl Est Cr Clr Drug Dosing 111.0 Est GFR ( Amer) 117.0 Est GFR (Non-Af Amer) 101.0 BUN/Creatinine Ratio 14.3 (10-20) Glucose 113 H (70-99) mg/dl POC Glucose (other) (70-99) mg/dl Estimat Average Glucose mg/dl Hemoglobin A1c (4.5-5.6) % Calcium 8.3 L (8.5-10.1) mg/dl POC Ioniz Calcium Edyta (1.12-1.32) mmol/l Magnesium (1.8-2.4) mg/dl Total Bilirubin (0.2-1) mg/dl AST (15-37) U/L ALT (12-78) U/L Alkaline Phosphatase (45-117) U/L POC Troponin I (0-0.045) ng/ml Troponin I 46.100 H* (0-0.045) ng/ml Total Protein (6.4-8.2) gm/dl Albumin (3.4-5.0) gm/dl Globulin (2.5-4.0) gm/dl Albumin/Globulin Ratio (0.9-2) Triglycerides 220 H (0-150) mg/dl Cholesterol 142 (0-200) mg/dl LDL Cholesterol, Calc 59 mg/dl VLDL Cholesterol, Calc 44 mg/dl HDL Cholesterol 39 mg/dl Cholesterol/HDL Ratio 4 Lipase (73-393) U/L TSH (0.300-4.500) uIu/ml Nasal Screen MRSA (PCR) Negative (Negative) Lyme Disease IgG Ab (Negative) Lyme Disease IgM Ab (Negative) 07/15/19 07/15/19 07/15/19 Range/Units 20:42 19:51 19:51 WBC (4.8-10.8) K/uL RBC (4.7-6.1) M/uL Hgb (14.0-18.0) g/dL POC Hgb 13.9 L (14.0-18.0) g/dl Hct (42-52) % POC Hct 41 L (42-52) % MCV (80-100) fL MCH (25-34) pg MCHC (32-36) g/dL RDW Std Deviation (36.4-46.3) fL RDW Coeff of Edyta (11.5-14.5) % Plt Count (130-400) K/uL MPV (7.4-10.4) fL Immature Gran % (Auto) % Neut % (Auto) % Lymph % (Auto) % Hardin % (Auto) % Eos % (Auto) % Baso % (Auto) % Immature Gran # (Auto) (0.00-0.02) K/uL Neut # (Auto) (1.4-6.5) K/uL Lymph # (Auto) (1.2-3.4) K/uL Hardin # (Auto) (0.11-0.59) K/uL Eos # (Auto) (0-0.5) K/uL Baso # (Auto) (0-0.2) K/uL PT (9.0-12.0) Seconds INR (0.9-1.1) APTT (21.0-31.0) Seconds PTT Ratio Activ Coag Time Kaolin 208 H (94-140) SECONDS POC Sodium 141 (135-144) mEq/L Sodium (136-145) mmol/L POC Potassium 3.5 (3.3-5.0) mEq/L Potassium (3.5-5.1) mmol/L POC Chloride 102 (101-112) mEq/L Chloride (98-107) mmol/L Carbon Dioxide (21-32) mmol/L POC Total CO2 25 (24-31) mEq/l Anion Gap (3-11) POC Anion Gap 19.0 (16-25) mmol/L POC BUN 12 (7-18) mg/dl BUN (7-18) mg/dl Creatinine (0.6-1.4) mg/dl POC Creatinine 1.2 (0.6-1.3) mg/dl Est Cr Clr Drug Dosing Est GFR ( Amer) Est GFR (Non-Af Amer) BUN/Creatinine Ratio (10-20) Glucose (70-99) mg/dl POC Glucose (other) 78 (70-99) mg/dl Estimat Average Glucose mg/dl Hemoglobin A1c (4.5-5.6) % Calcium (8.5-10.1) mg/dl POC Ioniz Calcium Edyta 1.21 (1.12-1.32) mmol/l Magnesium (1.8-2.4) mg/dl Total Bilirubin (0.2-1) mg/dl AST (15-37) U/L ALT (12-78) U/L Alkaline Phosphatase (45-117) U/L POC Troponin I 0.08 H (0-0.045) ng/ml Troponin I (0-0.045) ng/ml Total Protein (6.4-8.2) gm/dl Albumin (3.4-5.0) gm/dl Globulin (2.5-4.0) gm/dl Albumin/Globulin Ratio (0.9-2) Triglycerides (0-150) mg/dl Cholesterol (0-200) mg/dl LDL Cholesterol, Calc mg/dl VLDL Cholesterol, Calc mg/dl HDL Cholesterol mg/dl Cholesterol/HDL Ratio Lipase (73-393) U/L TSH (0.300-4.500) uIu/ml Nasal Screen MRSA (PCR) (Negative) Lyme Disease IgG Ab (Negative) Lyme Disease IgM Ab (Negative) 07/15/19 07/15/19 07/15/19 Range/Units 19:47 19:46 19:46 WBC (4.8-10.8) K/uL RBC (4.7-6.1) M/uL Hgb (14.0-18.0) g/dL POC Hgb (14.0-18.0) g/dl Hct (42-52) % POC Hct (42-52) % MCV (80-100) fL MCH (25-34) pg MCHC (32-36) g/dL RDW Std Deviation (36.4-46.3) fL RDW Coeff of Edyta (11.5-14.5) % Plt Count (130-400) K/uL MPV (7.4-10.4) fL Immature Gran % (Auto) % Neut % (Auto) % Lymph % (Auto) % Hardin % (Auto) % Eos % (Auto) % Baso % (Auto) % Immature Gran # (Auto) (0.00-0.02) K/uL Neut # (Auto) (1.4-6.5) K/uL Lymph # (Auto) (1.2-3.4) K/uL Hardin # (Auto) (0.11-0.59) K/uL Eos # (Auto) (0-0.5) K/uL Baso # (Auto) (0-0.2) K/uL PT (9.0-12.0) Seconds INR (0.9-1.1) APTT (21.0-31.0) Seconds PTT Ratio Activ Coag Time Kaolin (94-140) SECONDS POC Sodium (135-144) mEq/L Sodium (136-145) mmol/L POC Potassium (3.3-5.0) mEq/L Potassium (3.5-5.1) mmol/L POC Chloride (101-112) mEq/L Chloride (98-107) mmol/L Carbon Dioxide (21-32) mmol/L POC Total CO2 (24-31) mEq/l Anion Gap (3-11) POC Anion Gap (16-25) mmol/L POC BUN (7-18) mg/dl BUN (7-18) mg/dl Creatinine (0.6-1.4) mg/dl POC Creatinine (0.6-1.3) mg/dl Est Cr Clr Drug Dosing Est GFR ( Amer) Est GFR (Non-Af Amer) BUN/Creatinine Ratio (10-20) Glucose (70-99) mg/dl POC Glucose (other) (70-99) mg/dl Estimat Average Glucose mg/dl Hemoglobin A1c (4.5-5.6) % Calcium (8.5-10.1) mg/dl POC Ioniz Calcium Edyta (1.12-1.32) mmol/l Magnesium 2.2 (1.8-2.4) mg/dl Total Bilirubin (0.2-1) mg/dl AST (15-37) U/L ALT (12-78) U/L Alkaline Phosphatase (45-117) U/L POC Troponin I (0-0.045) ng/ml Troponin I (0-0.045) ng/ml Total Protein (6.4-8.2) gm/dl Albumin (3.4-5.0) gm/dl Globulin (2.5-4.0) gm/dl Albumin/Globulin Ratio (0.9-2) Triglycerides (0-150) mg/dl Cholesterol (0-200) mg/dl LDL Cholesterol, Calc mg/dl VLDL Cholesterol, Calc mg/dl HDL Cholesterol mg/dl Cholesterol/HDL Ratio Lipase (73-393) U/L TSH 1.760 (0.300-4.500) uIu/ml Nasal Screen MRSA (PCR) (Negative) Lyme Disease IgG Ab Negative (Negative) Lyme Disease IgM Ab Negative (Negative) 07/15/19 07/15/19 07/15/19 Range/Units 19:46 19:46 19:46 WBC 9.40 (4.8-10.8) K/uL RBC 4.60 L (4.7-6.1) M/uL Hgb 14.2 (14.0-18.0) g/dL POC Hgb (14.0-18.0) g/dl Hct 41.0 L (42-52) % POC Hct (42-52) % MCV 89.1 (80-100) fL MCH 30.9 (25-34) pg MCHC 34.6 (32-36) g/dL RDW Std Deviation 44.0 (36.4-46.3) fL RDW Coeff of Edyta 13.5 (11.5-14.5) % Plt Count 224 (130-400) K/uL MPV 9.8 (7.4-10.4) fL Immature Gran % (Auto) 0.1 % Neut % (Auto) 53.9 % Lymph % (Auto) 30.0 % Hardin % (Auto) 10.1 % Eos % (Auto) 5.5 % Baso % (Auto) 0.4 % Immature Gran # (Auto) 0.01 (0.00-0.02) K/uL Neut # (Auto) 5.06 (1.4-6.5) K/uL Lymph # (Auto) 2.82 (1.2-3.4) K/uL Hardin # (Auto) 0.95 H (0.11-0.59) K/uL Eos # (Auto) 0.52 H (0-0.5) K/uL Baso # (Auto) 0.04 (0-0.2) K/uL PT 9.8 (9.0-12.0) Seconds INR 1.0 (0.9-1.1) APTT 25.3 (21.0-31.0) Seconds PTT Ratio 0.9 Activ Coag Time Kaolin (94-140) SECONDS POC Sodium (135-144) mEq/L Sodium 142 (136-145) mmol/L POC Potassium (3.3-5.0) mEq/L Potassium 3.5 (3.5-5.1) mmol/L POC Chloride (101-112) mEq/L Chloride 107 (98-107) mmol/L Carbon Dioxide 29 (21-32) mmol/L POC Total CO2 (24-31) mEq/l Anion Gap 6.0 (3-11) POC Anion Gap (16-25) mmol/L POC BUN (7-18) mg/dl BUN 13 (7-18) mg/dl Creatinine 1.09 (0.6-1.4) mg/dl POC Creatinine (0.6-1.3) mg/dl Est Cr Clr Drug Dosing Not Reportable Est GFR ( Amer) 89.3 Est GFR (Non-Af Amer) 77.1 BUN/Creatinine Ratio 12.2 (10-20) Glucose 78 (70-99) mg/dl POC Glucose (other) (70-99) mg/dl Estimat Average Glucose mg/dl Hemoglobin A1c (4.5-5.6) % Calcium 9.1 (8.5-10.1) mg/dl POC Ioniz Calcium Edyta (1.12-1.32) mmol/l Magnesium (1.8-2.4) mg/dl Total Bilirubin 0.2 (0.2-1) mg/dl AST 17 (15-37) U/L ALT 39 (12-78) U/L Alkaline Phosphatase 72 (45-117) U/L POC Troponin I (0-0.045) ng/ml Troponin I (0-0.045) ng/ml Total Protein 6.8 (6.4-8.2) gm/dl Albumin 3.8 (3.4-5.0) gm/dl Globulin 3.0 (2.5-4.0) gm/dl Albumin/Globulin Ratio 1.3 (0.9-2) Triglycerides (0-150) mg/dl Cholesterol (0-200) mg/dl LDL Cholesterol, Calc mg/dl VLDL Cholesterol, Calc mg/dl HDL Cholesterol mg/dl Cholesterol/HDL Ratio Lipase 58 L (73-393) U/L TSH (0.300-4.500) uIu/ml Nasal Screen MRSA (PCR) (Negative) Lyme Disease IgG Ab (Negative) Lyme Disease IgM Ab (Negative) PG Care Time/CCT Total # of Minutes Spent Total Time Spent with Patient: Total time spent is greater than 50% in coordination of care (as documented) at patient's floor/unit and/or counseling patient: (1) STEMI (ST elevation myocardial infarction) Involved coronary artery: other coronary artery Qualified Code(s): I21.29 - ST elevation (STEMI) myocardial infarction involving other sites
--- NOTE | 2019-07-16 12:32 | Hospitalist Progress Note ---
Date of Service July 16, 2019 Assessment & Plan (1) STEMI (ST elevation myocardial infarction): Pt presented with central CP x 1 hour with radiation arm, nausea, diaphoresis EKG: ST elevation in inferior leads, sinus bradycardia rate 51. -Was loaded with Brilinta, given ASA 324mg in ER -S/P PCI with SHELLEY to proximal OM1 on 07/15/[address] Rasmussen. -Echo-preserved LV function, inferolateral hypokinesis; Troponin peaked to 47 -Lipid panel - LDL 59, HDL 39 -Cardiology on board: -Atorvastatin 80mg daily, Lisinopril 5mg, Brilinta BID, Metoprolol 12.4 mg BID (As HR in 40s, but okay to continue) -Recommends dual antiplatelet therapy for at least 1 year. -Recommends cardiac rehab (2) HLD (hyperlipidemia): -Atorvastatin increased to 80mg daily (3) GERD (gastroesophageal reflux disease): -Continue PPI (4) Chronic back pain: -On Hydrocodone (5) Tobacco use: -Smoking cessation encouraged Full Code as per discussion with pt Follows with Dr Silvina Oneill in [place] for routine care Disposition Ok to discharge tomorrow if continues to be stable per cardiology Subjective Patient is feeling well today. No chest pain. No shortness of breath. Tele reviewed -- sinus bradycardia, no ectopy Physical Exam Physical Exam: GENERAL- AAOX3, No acute distress NECK- Supple, no JVD LUNGS- Air entry bilaterally equal. No rales, rhonchi, crackles, wheezes heard. HEART- Regular rate and rhythm. No murmurs ABDOMEN- Soft, non tender, non distended, Bowel sounds heard. EXTREMITIES- S/P Right radial artery access site - no ecchymosis, Hematoma. Good peripheral pulses, no edema Results & Data Vital Signs (Past 12 Hours) Vital Signs Temp Pulse Resp BP Pulse Ox 07/16/19 12:00 36.5 C 44 L 18 114/73 95 07/16/19 11:00 44 L 17 106/67 95 07/16/19 10:00 44 L 12 107/75 94 07/16/19 09:00 77 16 131/75 93 07/16/19 08:00 49 L 12 128/71 95 07/16/19 07:00 36.7 C 43 L 12 105/78 96 07/16/19 04:30 48 L 14 103/56 L 97 07/16/19 04:00 36.7 C 45 L 14 106/54 L 97 07/16/19 03:30 48 L 12 117/80 93 07/16/19 03:00 52 L 14 123/71 96 07/16/19 02:30 51 L 11 L 127/68 95 07/16/19 02:00 55 L 15 111/78 94 07/16/19 01:30 53 L 19 114/73 95 07/16/19 01:00 54 L 15 116/71 94 07/16/19 00:30 53 L 17 120/69 92 (1) STEMI (ST elevation myocardial infarction) Involved coronary artery: other coronary artery Qualified Code(s): I21.29 - ST elevation (STEMI) myocardial infarction involving other sites
[2019-07-17 05:46] LABS: BUN Creatinine Ratio 17.7 (10-20); Calcium 8.3 mg/dl (8.5-10.1); Creatinine Clr Calc Pharmacy 103.4 ml/min; Est GFR (African American) 113.7; Est GFR (Non-African American) 98.1; Potassium 4.2 mmol/L (3.5-5.1)
[2019-07-17] MEDS: ATORVASTATIN 40 MG TAB PO SCH (07:50)
[2019-07-17] MEDS: METOPROLOL TARTRATE 25 MG TAB PO SCH (07:50)
[2019-07-17] MEDS: TICAGRELOR 90 MG TAB PO SCH (07:50)
[2019-07-17] MEDS: ASPIRIN 81 MG ECTAB PO SCH (07:51)
[2019-07-17] MEDS: LISINOPRIL 5 MG TAB PO SCH (07:51)
[2019-07-17] MEDS: ENOXAPARIN INJ 40 MG/0.4 ML SYR SQ SCH (07:51)
--- NOTE | 2019-07-17 08:02 | Cardiology Progress Note ---
Date of Service July 17, 2019 Assessment & Plan (1) STEMI (ST elevation myocardial infarction): 2. Preserved LV function, inferolateral hypokinesis 3. Dyslipidemia 4. Tobacco use 5. Nonsustained VT 6. Sinus bradycardia Patient stable from a cardiac standpoint. No recurrent chest pain. Hemodynamically stable. Few episodes of nonsustained VT. Asymptomatic sinus bradycardia From a cardiac standpoint stable for discharge today. Home on DAPT with aspirin, ticagrelor OK with sinus bradycardia and in the setting of NSVT continue metoprolol 12.5 twice daily Continue lisinopril, high intensity statin Long discussion regarding smoking cessation, dietary modification Follow-up with me in 2 to 3 weeks. Subjective Feeling well today. No chest pain. No palpitations. No shortness of breath. Telemetry reviewedprimarily sinus bradycardia, occasionally down into high 30s with sleeping, asymptomatic. Episodes of slow, asymptomatic nonsustained VT longest 17 beats. Review of Systems Review of Systems: All systems reviewed & are unremarkable except as noted in HPI & below Physical Exam Physical Exam: General: Comfortable, no acute distress HEENT: Sclerae anicteric, mucous membranes moist Lungs: Clear to auscultation bilaterally, no rhonchi or wheezes Cardiac: Regular rate and rhythm, no murmurs. No JVD. Abdomen: Soft, nontender, nondistended, positive bowel sounds. Extremities: Warm, well perfused, no edema. Right radial artery access site with minimal ecchymosis, no hematoma. Distal pulse and sensation intact. Skin: No rashes or lesions. Neuro: Nonfocal Psych: Alert orient x3, normal affect and mood Results & Data Vital Signs (Past 12 Hours) Vital Signs Temp Pulse Resp BP Pulse Ox 07/17/19 06:50 36.9 C 55 L 20 100/59 L 97 07/17/19 03:40 36.5 C 48 L 20 97/56 L 94 07/16/19 23:10 36.9 C 51 L 20 104/57 L 96 PG Care Time/CCT Total # of Minutes Spent Total Time Spent with Patient: Total time spent is greater than 50% in coordination of care (as documented) at patient's floor/unit and/or counseling patient: (1) STEMI (ST elevation myocardial infarction) Involved coronary artery: other coronary artery Qualified Code(s): I21.29 - ST elevation (STEMI) myocardial infarction involving other sites
--- NOTE | 2019-07-17 08:28 | Hospitalist Progress Note ---
Date of Service July 17, 2019 Assessment & Plan (1) STEMI (ST elevation myocardial infarction): Pt presented with central CP x 1 hour with radiation arm, nausea, diaphoresis EKG: ST elevation in inferior leads -Was loaded with Brilinta, given ASA 324mg in ER -S/P PCI with SHELLEY to proximal OM1 on 07/15/[address] Rasmussen. -Echo-preserved LV function, inferolateral hypokinesis; Troponin peaked to 47 -Lipid panel - LDL 59, HDL 39 -Cardiology on board: -Atorvastatin 80 mg daily, Lisinopril 5mg, Brilinta BID, Metoprolol 12.4 mg BID -Recommends dual antiplatelet therapy for at least 1 year. -Recommends cardiac rehab -Cleared for discharge today by cardiology (2) Bradycardia: Asymptomatic -HR did go down to high 30s during sleep -Cardiology aware- okay to continue with reduced dose of Lopressor 12.5 mg BID (3) HLD (hyperlipidemia): -Atorvastatin increased to 80mg daily -Lipid panel - LDL 59, HDL 39 (4) GERD (gastroesophageal reflux disease): -Continue PPI (5) Chronic back pain: -On Hydrocodone (6) Tobacco use: -Smoking cessation encouraged Full Code as per discussion with pt Follows with Dr Silvina Oneill in [place] for routine care Disposition Cleared for discharge by cardiology. Okay to discharge home today Subjective Patient is doing well today. Denies any chest pain, shortness of breath, cough, fever, chills, nausea, vomiting, dizziness, syncope. Telemetry reviewedprimarily sinus bradycardia, occasionally down into high 30s with sleeping, asymptomatic. Episodes of slow, asymptomatic nonsustained VT longest 17 beats. Physical Exam Physical Exam: General: Awake, alert, oriented x3, not in acute distress HEENT: Sclerae anicteric, mucous membranes moist Lungs: Clear to auscultation bilaterally, no rhonchi or wheezes Cardiac: Regular rate and rhythm, no murmurs. No JVD. Extremities: Warm, well perfused, no edema. Right radial artery access site with minimal ecchymosis, no hematoma. Distal pulse and sensation intact. Results & Data Vital Signs (Past 12 Hours) Vital Signs Temp Pulse Pulse Resp BP Pulse Ox 07/17/19 08:00 42 L 07/17/19 06:50 36.9 C 55 L 20 100/59 L 97 07/17/19 03:40 36.5 C 48 L 20 97/56 L 94 07/16/19 23:10 36.9 C 51 L 20 104/57 L 96 (1) STEMI (ST elevation myocardial infarction) Involved coronary artery: other coronary artery Qualified Code(s): I21.29 - ST elevation (STEMI) myocardial infarction involving other sites
--- NOTE | 2019-07-17 08:33 | Discharge Summary ---
Date of Service July 17, 2019 Admission HPI Per Admitting Provider Pt is 53 y/o M with PMH tobacco use, HLD, GERD, chronic back pain presented to ER with c/o central CP x 1 hour with radiation to arms, nausea, and diaphoresis. He reported intermittent CP over past 2 weeks that would self resolve. In ER EKG sinus bradycardia with ST elevation in inferior leads with stable vital signs. Initial POC troponin mildly elevated at 0.08. STEMI and S/P PCI with SHELLEY to proximal OM1 today by Dr Rasmussen. Post cath pt reports doing well. He denies any CP, SOB, dizziness, N/V. Denies fever/chills, diaphoresis, PETER, syncope, vision changes, neck pain, orthopnea, palpitations, cough, sore throat, choking, otalgia, rhinorrhea, abdominal pain, paresthesias, extremity edema, rashes, urinary symptoms. Principal Diagnosis 1. STEMI, Inferolateral 2. Asymptomatic Bradycardia Secondary diagnoses on discharge 1. Hyperlipidemia 2. GERD 3. Tobacco abuse disorder 4. Chronic back pain Discharge Exam GENERAL- AAOX3, No acute distress NECK- Supple, no JVD LUNGS- Air entry bilaterally equal. No rales, rhonchi, crackles, wheezes heard. HEART- Regular rate and rhythm. No murmurs ABDOMEN- Soft, non tender, non distended, Bowel sounds heard. EXTREMITIES- S/P Right radial artery access site - no ecchymosis, Hematoma. Good peripheral pulses, no edema Discharge Data Allergies Allergy/AdvReac Type Severity Reaction Status Date / Time No Known Allergies Allergy Unverified 07/15/19 19:39 Consultations 07/15/19 21:11 Consult Case Management - Discharge Planning Routine 07/15/19 21:12 Consult Fire Fighter Routine 07/15/19 22:26 Consult Cardiology Routine 07/16/19 04:44 Consult Cardiac Rehabilitation ONCE Procedures Performed Operation Date: 07/15/19 20:00 Actual Procedures p Aspiration/PCI w/SHELLEY for Stemi - Stewart Rasmussen MD s Cath, Left with Cors and Vent - Stewart Rasmussen MD s Cineradiography w/Routine Exam - Stewart Rasmussen MD s Ultrasound Vascular Access - Stewart Rasmussen MD Ordered Studies 07/15/19 19:50 CL Cath Imgs for PACS use only Stat Hospital Course (1) STEMI (ST elevation myocardial infarction): Pt presented with central CP x 1 hour with radiation arm, nausea, diaphoresis EKG: ST elevation in inferior leads -Was loaded with Brilinta, given ASA 324mg in ER -S/P PCI with SHELLEY to proximal OM1 on 07/15/[address] Rasmussen. -Echo-preserved LV function, inferolateral hypokinesis; Troponin peaked to 47 -Lipid panel - LDL 59, HDL 39 -Cardiology on board: -Atorvastatin 80 mg daily, Lisinopril 5mg, Brilinta BID, Metoprolol 12.4 mg BID -Recommends dual antiplatelet therapy for at least 1 year. -Recommends cardiac rehab -Cleared for discharge today by cardiology (2) Bradycardia: Asymptomatic -HR did go down to high 30s during sleep -Cardiology aware- okay to continue with reduced dose of Lopressor 12.5 mg BID (3) HLD (hyperlipidemia): -Atorvastatin increased to 80mg daily -Lipid panel - LDL 59, HDL 39 (4) GERD (gastroesophageal reflux disease): -Continue PPI (5) Chronic back pain: -On Hydrocodone (6) Tobacco use: -Smoking cessation encouraged Full Code as per discussion with pt Follows with Dr Silvina Oneill in [place] for routine care Disposition Cleared for discharge by cardiology. Okay to discharge home today Total Time Total Time Spent Total Time Spent (In Minutes): 40 minutes Discharge Plan Discharge Items Patient Disposition: Home - Self-Care Reason For Visit: CHEST PAIN Discharge Diagnosis: STEMI, Inferolateral wall myocardial infarction Discharge Goals: Decrease discomfort and Improve disease control Activity: Resume your previous activity Non-emergency contact: Primary Care Provider Call non-emergency contact if: your symptoms worsen Follow-up/Referrals: Stewart Rasmussen MD [Physician] - (Follow-up within 2 to 3 weeks. They will call you for appointment date and time) Silvina Oneill MD [Primary Care Provider] - (We will call you for follow-up appointment within 7 days) Diet: Heart Healthy Addtl Provider Instructions: You were admitted to the hospital for STEMI, myocardial infarction (heart attack) , Inferolateral wall You had cardiac cath with placement of one drug-eluting stent in proximal OM1 MEDICATION CHANGES 1. new medicationaspirin 81 mg daily 2. New medicationBrilinta twice a day as instructed 3. New medicationlisinopril 5 mg daily 4. New medicationmetoprolol 12.4 mg p.o. twice a day 5. Increased atorvastatin from 20 mg to 80 mg Recommend cardiac rehab Quit smoking Prescriptions: New atorvastatin 40 mg Tablet 80 mg PO QAM 30 Days Qty: 60 RF: 0 aspirin [Ecotrin Low Strength] 81 mg Tablet,Delayed Release (Dr/Ec) 81 mg PO QAM 30 Days Qty: 30 RF: 2 lisinopril [Zestril] 5 mg Tablet 5 mg PO QAM 30 Days Qty: 30 RF: 0 metoprolol tartrate 25 mg Tablet 12.5 mg PO BID 30 Days Qty: 30 RF: 0 Brilinta 90 mg Tablet 90 mg PO BID 30 Days Qty: 60 RF: 0 Continued pantoprazole 20 mg Tablet,Delayed Release (Dr/Ec) 20 mg PO DAILY RF: 0 hydrocodone-acetaminophen 7.5-325 mg Tablet 1 tab PO DAILY PRN (Reason: Pain) RF: 0 Discontinued atorvastatin [Lipitor] 20 mg Tablet 20 mg PO DAILY RF: 0 Stand-Alone Forms: Call Back Authorization, [facility] Discharge Orders: Discharge Order (Routine); Ordered 07/17/19 Ordered By: Yamilka Sr Admission Data Admit Date/Time: 07/15/19 21:12 Attending Provider: Yamilka Sr Admit Provider: Stewart Rasmussen Primary Care Provider: Silvina Oneill Other Providers: Facundo Perez Christophe R. Service: Telemetry Other Pending Studies at Discharge: No
== END 2019-07-17 09:38 | disposition home or self-care (01) | DRG 247 ==
LOC: ED 19:35 → SUATTDRO 21:12 → 1E 21:12 → 2E 07-16 12:51